=== PATIENT | female | born 1930 | race Two or more races ===

== ENCOUNTER 2022-02-15 05:28 | Inpatient (IN) | payer OTHER ==
[~2022-02-15] VITALS: Ht 165.1 cm; Wt 150.2 kg
[2022-02-15] MEDS ORDERED: MORPHINE SULFATE 4 MG/ML SYR/VIAL IV PRN (07:30)
[2022-02-15 07:45] LABS: Basophils # (auto) 0 10 ^3/uL (0-0.2); Basophils % (auto) 0.3 % (0.0-2.0); Eosinophils # (auto) 0 10 ^3/uL (0-0.8); Eosinophils % (auto) 0.2 % (0.0-7.0); Hemoglobin 14.6 g/dL (12.2-16.2); Lymphocytes # (auto) 0.7 10 ^3/uL (0.4-5.4); Lymphocytes % (auto) 6.2 % (10.0-50.0); Mean Corpuscular Hgb Conc. 33.1 g/dL (32.0-36.0); Mean Corpuscular Volume 90.4 fL (80.0-100.0); Monocytes # (auto) 0.6 10 ^3/uL (0-1.3); Monocytes % (auto) 5.2 % (0.0-12.0); Neutrophils # (auto) 9.5 10 ^3/uL (1.6-8.6); Neutrophils % (auto) 88.1 % (37.0-80.0); Nucleated Red Blood Cells % 0.1 %; Red Blood Cells 4.86 10^6/uL (4.0-5.20); Red Cell Distribution Width 13.8 % (11.8-14.3); White Blood Cell 10.8 10^3/uL (4.4-10.8)
[2022-02-15 08:14] LABS: Albumin 3.1 g/dL (3.4-5.0); Magnesium 2.2 mg/dL (1.6-2.6); Potassium 3.2 mmol/L (3.5-5.1)
[2022-02-15 08:17] LABS: BUN/Creatinine Ratio 30.4; Bilirubin, Total 0.5 mg/dL (0.2-1.0); Total Protein 6.4 g/dL (6.4-8.2)
[2022-02-15] MEDS ORDERED: ONDANSETRON HCL 4 MG/2 ML VIAL IV PRN ×2 (08:30→13:15)
[2022-02-15] MEDS ORDERED: ONDANSETRON HCL 4 MG/2 ML VIAL ONE (08:33)
[2022-02-15 08:38] LABS: Partial Thromboplastin Time 27.4 sec (24.6-33.4)
[2022-02-15 08:41] LABS: Urine Amorphous Crystal FEW /hpf (None Seen); Urine Bacteria FEW /hpf (None Seen); Urine Blood Negative /uL (Negative); Urine Specific Gravity 1.009 (1.001-1.035); Urine WBC 84 /hpf (0 - 5)
[2022-02-15] MEDS ORDERED: ACETAMINOPHEN 325 MG TAB PO PRN (13:15)
[2022-02-15] MEDS ORDERED: NITROGLYCERIN 0.4 MG SL TAB SL PRN (13:15)
[2022-02-15] MEDS ORDERED: MORPHINE SULFATE INJ 2 MG/ml SYRG IV PRN (13:15)
[2022-02-15] MEDS ORDERED: SOD CHL 0.9%/ KCL 20MEQ 1,000 ML IV ONE (13:30)
[2022-02-15] MEDS ORDERED: HYDR-4902 PO (15:08)
[2022-02-15] MEDS: HYDROcodone-ACET 5/325MG TAB PO PRN ×2 (16:14→23:56)
[2022-02-15 23:47] VITALS: BP 163/87
[2022-02-16] VITALS (14 sets, daily range): BP systolic 120–172; BP diastolic 64–100
[2022-02-16 05:31] LABS: Basophils # (auto) 0 10 ^3/uL (0-0.2); Basophils % (auto) 0.3 % (0.0-2.0); Eosinophils # (auto) 0.1 10 ^3/uL (0-0.8); Eosinophils % (auto) 1.4 % (0.0-7.0); Hemoglobin 13.3 g/dL (12.2-16.2); Mean Corpuscular Hemoglobin 31.4 pg (28.0-32.0); Mean Corpuscular Volume 89.7 fL (80.0-100.0); Monocytes # (auto) 0.6 10 ^3/uL (0-1.3); Monocytes % (auto) 9.5 % (0.0-12.0); Neutrophils # (auto) 4.3 10 ^3/uL (1.6-8.6); Neutrophils % (auto) 71.8 % (37.0-80.0); Nucleated Red Blood Cells % 0.1 %; Red Blood Cells 4.24 10^6/uL (4.0-5.20); Red Cell Distribution Width 13.8 % (11.8-14.3)
[2022-02-16] MEDS: MORPHINE SULFATE INJ 2 MG/ml SYRG IV PRN (05:48)
[2022-02-16] MEDS: ENOXAPARIN SOD 40 MG/0.4 ML SYRINGE SC SCH (10:00)
[2022-02-16] MEDS ORDERED: LIDOCAINE 1%-Mpf/Epinephrine 1:200,000 ONE (11:33)
[2022-02-16] MEDS ORDERED: VANCOMYCIN HCL 1000 MG VL ONE (11:57)
[2022-02-16] MEDS ORDERED: BUPIVACAINE 0.5% P/F INJ 10 ML VIAL ONE ×2 (12:00→12:24)
[2022-02-16] MEDS ORDERED: GLYCOPYRROLATE 0.2 MG/ML 1ML VIAL ONE (12:20)
[2022-02-16] MEDS ORDERED: MIDAZOLAM HCL 2MG/2ML 2ml VIAL (1mg/ml) ONE (12:20)
[2022-02-16] MEDS ORDERED: KETAMINE HCL 10 ML ONE (12:20)
[2022-02-16] MEDS ORDERED: ePHEDrine SULFATE 50 MG/ML AMP ONE (12:20)
[2022-02-16] MEDS ORDERED: fentaNYL CITRATE 100 MCG/2 ML VL ONE (12:20)
[2022-02-16] MEDS ORDERED: ONDANSETRON HCL 4 MG/2 ML VIAL ONE (12:20)
[2022-02-16] MEDS ORDERED: PROPOFOL 10 MG/ML 20 ML IV ONE (12:20)
[2022-02-16] MEDS ORDERED: PHENYLEPHRINE HCL 10 MG/ML VL ONE (12:20)
[2022-02-16] MEDS ORDERED: MORPHINE SULF PF 5 MG/10 ML VIAL ONE (12:20)
[2022-02-16] MEDS ORDERED: ceFAZolin 1GM VL ONE (13:06)
[2022-02-16] MEDS ORDERED: LABETALOL HCL 5 MG/ML 4ML SYRINGE IV PRN (14:00)
[2022-02-16] MEDS ORDERED: NALOXONE HCL 0.4 MG/ML VIAL IV PRN (14:00)
[2022-02-16] MEDS ORDERED: DexAMETHasone SOD PHOS 10MG/1ML VIAL INJ IV PRN (14:00)
[2022-02-16] MEDS ORDERED: ONDANSETRON HCL 4 MG/2 ML VIAL IV PRN ×2 (14:00)
[2022-02-16] MEDS ORDERED: ceFAZolin 2 GM in D5W 5% 100 ML IV SCH (14:00)
[2022-02-16] MEDS ORDERED: diphenhdrAMINE HCL 50 MG/1 ML VL IV PRN (14:00)
[2022-02-16] MEDS ORDERED: LISI40TA11 PO (16:27)
[2022-02-16] MEDS ORDERED: AMLO-496 PO (16:27)
[2022-02-16] MEDS ORDERED: hydrALAZINE HCL 20 MG/ML VL IV PRN (16:30)
[2022-02-16] MEDS ORDERED: amLODIPine BESYLATE 5 MG TAB PO ONE (16:30)
[2022-02-16] MEDS ORDERED: LISINOPRIL 20 MG TAB PO ONE (16:30)
[2022-02-17] VITALS (23 sets, daily range): BP systolic 93–156; BP diastolic 49–119
[2022-02-17] MEDS: ceFAZolin 2 GM in D5W 5% 100 ML IV SCH ×3 (08:14→23:51)
[2022-02-17] MEDS: LISINOPRIL 20 MG TAB PO SCH (08:15)
[2022-02-17] MEDS: amLODIPine BESYLATE 5 MG TAB PO SCH (08:15)
[2022-02-17] MEDS: ENOXAPARIN SOD 40 MG/0.4 ML SYRINGE SC SCH (08:16)
[2022-02-17] MEDS: MORPHINE SULFATE INJ 2 MG/ml SYRG IV PRN (09:35)
[2022-02-17 14:42] LABS: BUN/Creatinine Ratio 26.3; Calcium 8.7 mg/dL (8.5-10.1); Potassium 4.2 mmol/L (3.5-5.1)
[2022-02-17] MEDS: HYDROcodone-ACET 5/325MG TAB PO PRN (20:23)
[2022-02-18] VITALS (7 sets, daily range): BP systolic 119–165; BP diastolic 67–91
[2022-02-18] MEDS: HYDROcodone-ACET 5/325MG TAB PO PRN ×2 (02:47→09:12)
[2022-02-18 06:20] LABS: Basophils # (auto) 0 10 ^3/uL (0-0.2); Basophils % (auto) 0.3 % (0.0-2.0); Eosinophils # (auto) 0.2 10 ^3/uL (0-0.8); Eosinophils % (auto) 2.6 % (0.0-7.0); Hematocrit 33.4 % (36.0-46.0); Hemoglobin 11.3 g/dL (12.2-16.2); Lymphocytes # (auto) 1.2 10 ^3/uL (0.4-5.4); Lymphocytes % (auto) 17.9 % (10.0-50.0); Mean Corpuscular Hemoglobin 30.5 pg (28.0-32.0); Mean Corpuscular Volume 89.8 fL (80.0-100.0); Monocytes # (auto) 0.6 10 ^3/uL (0-1.3); Monocytes % (auto) 9.6 % (0.0-12.0); Neutrophils # (auto) 4.5 10 ^3/uL (1.6-8.6); Neutrophils % (auto) 69.6 % (37.0-80.0); Nucleated Red Blood Cells % 0.1 %; Red Blood Cells 3.71 10^6/uL (4.0-5.20); Red Cell Distribution Width 13.6 % (11.8-14.3); White Blood Cell 6.5 10^3/uL (4.4-10.8)
[2022-02-18 06:35] LABS: Potassium 4.2 mmol/L (3.5-5.1)
[2022-02-18 06:36] LABS: BUN/Creatinine Ratio 34.7; Calcium 8.6 mg/dL (8.5-10.1); Magnesium 2.1 mg/dL (1.6-2.6)
[2022-02-18] MEDS: amLODIPine BESYLATE 5 MG TAB PO SCH (09:43)
[2022-02-18] MEDS: LISINOPRIL 20 MG TAB PO SCH (09:44)
[2022-02-18] MEDS: ENOXAPARIN SOD 40 MG/0.4 ML SYRINGE SC SCH (09:45)
[2022-02-18] MEDS: MORPHINE SULFATE INJ 2 MG/ml SYRG IV PRN (15:34)
[2022-02-19] MEDS: MORPHINE SULFATE INJ 2 MG/ml SYRG IV PRN (00:57)
[2022-02-19 04:41] VITALS: BP 158/75
[2022-02-19 08:00] VITALS: BP 155/80
[2022-02-19 09:00] VITALS: BP 163/85
[2022-02-19] MEDS: amLODIPine BESYLATE 5 MG TAB PO SCH (09:29)
[2022-02-19] MEDS: LISINOPRIL 20 MG TAB PO SCH (09:30)
[2022-02-19] MEDS: HYDROcodone-ACET 5/325MG TAB PO PRN ×2 (09:30→15:21)
[2022-02-19] MEDS: ENOXAPARIN SOD 40 MG/0.4 ML SYRINGE SC SCH (09:30)
[2022-02-19 11:26] VITALS: BP 144/81
[2022-02-19 13:00] VITALS: BP 141/81
[2022-02-19 13:21] VITALS: BP 148/72
[2022-02-19] MEDS ORDERED: Ensure HIGH Protein Chocolate 8oz Bottle PO SCH (18:00)
== END 2022-02-19 16:20 | DRG 481 ==
LOC: EDBD 05:28 → ER 05:28 → TELE 13:18 → TELE-EAST 22:33
PROVIDERS: ADMIT Internal Medicine; ATTEND Internal Medicine
PROC: BQ101ZZ Fluoroscopy of Right Hip using Low Osmolar Contrast (ICD-10-PCS; 2022-02-16)
PROC: 0QS634Z Reposition Right Upper Femur with Internal Fixation Device, Percutaneous Approach (ICD-10-PCS; principal; 2022-02-16 12:31)
DX: S72.141A Displaced intertrochanteric fracture of right femur, initial encounter for closed fracture (principal); N39.0 Urinary tract infection, site not specified; E87.6 Hypokalemia; I10 Essential (primary) hypertension; R19.7 Diarrhea, unspecified; E78.5 Hyperlipidemia, unspecified; I25.10 Atherosclerotic heart disease of native coronary artery without angina pectoris; W01.0XXA Fall on same level from slipping, tripping and stumbling without subsequent striking against object, initial encounter; Z20.822 Contact with and (suspected) exposure to COVID-19; Z87.440 Personal history of urinary (tract) infections; I25.2 Old myocardial infarction; Z90.710 Acquired absence of both cervix and uterus; Z88.1 Allergy status to other antibiotic agents; Z88.2 Allergy status to sulfonamides; Z91.041 Radiographic dye allergy status; Z88.0 Allergy status to penicillin; Y93.89 Activity, other specified; Y92.098 Other place in other non-institutional residence as the place of occurrence of the external cause; Y99.8 Other external cause status
CPT/HCPCS: 36415; 71045; 72170; 72192; 73502; 76000; 80048; 80053; 81001; 83605; 83735; 85025; 85610; 85730; 86850; 86900; 86901; 87081; 93005; 93306; 96361; 96374; 96375; 97110; 97116; 97163; 97530; G0378; J0690; J2250; J2405; J2704; J3490; J7060